=== PATIENT | male | born 1950 | race Caucasian/White ===

== ENCOUNTER 2019-10-26 10:08 | Emergency (ER) | payer OTHER ==
[~2019-10-26] VITALS: Ht 182.9 cm; Wt 144.7 kg
[2019-10-26] MEDS ORDERED: Vitamin D2000 UNIT PO (10:17)
[2019-10-26] MEDS ORDERED: METO100ER PO (10:18)
[2019-10-26] MEDS ORDERED: TOPROL XL200 MG PO (10:52)
[2019-10-26] MEDS ORDERED: FEROSUL325 MG PO (10:53)
[2019-10-26] MEDS ORDERED: Furosemide40 MG PO (10:53)
[2019-10-26] MEDS ORDERED: OMEPRAZOLE20 MG PO (10:53)
[2019-10-26] MEDS ORDERED: Synthroid200 MCG PO (10:54)
[2019-10-26] MEDS ORDERED: WARF5 PO (10:54)
[2019-10-26 10:56] LABS: BASOPHILS ABSOLUTE AUTO 0.04 K/mm3 (0.00-0.23); BASOPHILS PERCENT AUTO 1 % (0-2); EOSINOPHILS ABSOLUTE AUTO 0.05 K/mm3 (0.00-0.68); EOSINOPHILS PERCENT AUTO 1 % (0-6); Hematocrit 43.9 % (37.0-53.0); Hemoglobin 13.6 g/dL (13.5-17.5); IMMATURE GRAN ABSOLUTE AUTO 0.02 K/mm3 (0.00-0.10); IMMATURE GRAN PERCENT AUTO 0 % (0-1); LYMPHOCYTES ABSOLUTE AUTO 0.52 K/mm3 (0.84-5.20); LYMPHOCYTES PERCENT AUTO 8 % (21-46); MONOCYTES ABSOLUTE AUTO 0.67 K/mm3 (0.16-1.47); MONOCYTES PERCENT AUTO 10 % (4-13); Mean Corpuscular HGB 29.8 pg (26.0-34.0); Mean Corpuscular Volume 96 fL (80-100); Mean Platelet Volume 10.4 fL (9.1-12.4); NEUTROPHILS ABSOLUTE AUTO 5.19 K/mm3 (1.96-9.15); NEUTROPHILS PERCENT AUTO 80 % (41-73); Platelet Count 157 K/mm3 (150-400); RDW Coefficient Variation 14.7 % (11.7-14.2); RDW Standard Deviation 52.8 fL (35.1-46.3); Red Blood Cell Count 4.56 M/mm3 (4.30-5.90); White Blood Cell Count 6.49 K/mm3 (4.00-11.30)
[2019-10-26 11:10] LABS: Alanine Aminotransfer (ALT/SGP 34 U/L (12-78); Albumin, Blood 3.6 g/dL (3.4-5.0); Alk Phos 104 U/L (50-136); Anion Gap 7 mmol/L (6-16); Aspartate Aminotrans (AST/SGOT 31 U/L (12-37); Bilirubin, Total 0.8 mg/dL (0.1-1.0); Blood Urea Nitrogen 12 mg/dL (8-24); Bun/Creatinine Ratio 12.7 (12.0-20.0); CO2, Blood 27 mmol/L (21-32); Calcium, Blood 8.9 mg/dL (8.5-10.1); Chloride, Blood 106 mmol/L (98-108); Creatinine, Blood 0.95 mg/dL (0.60-1.20); Globulin, Blood 3.7 g/dL (2.2-4.0); Glomerular Filtration Rate >60 (60-); Glucose, Blood 104 mg/dL (70-99); Potassium, Blood 3.9 mmol/L (3.5-5.5); Sodium, Blood 140 mmol/L (136-145); Total Protein, Blood 7.3 g/dL (6.4-8.2)
[2019-10-26] MEDS ORDERED: ALBU90OI INH (12:51)
[2019-10-26] MEDS ORDERED: Prednisone20 MG PO (12:51)
== END 2019-10-26 13:14 | disposition home or self-care (01) ==
LOC: ER 10:08
PROVIDERS: Emergency Medicine
DX: J44.1 Chronic obstructive pulmonary disease with (acute) exacerbation (principal); I48.91 Unspecified atrial fibrillation; E03.9 Hypothyroidism, unspecified; K21.9 Gastro-esophageal reflux disease without esophagitis; Z87.891 Personal history of nicotine dependence
CPT/HCPCS: 71046; 80053; 85025; 93005; 93010; 94640; 96374; 99285-25; J2930